=== PATIENT | male | born 1945 | race Caucasian/White ===

== ENCOUNTER 2019-01-29 13:49 | Emergency (ER) | payer OTHER ==
[2019-01-29 14:00] VITALS: BP 129/70
--- NOTE | 2019-01-29 14:25 | UC ---
Lower Extremity/Ankle HPI - HPI Summary HPI Summary: fell today when his shoe got stuck on a sticky area on the floor--pain in right hip and left knee - History of Current Complaint Chief Complaint: UCLowerExtremity Stated Complaint: KNEE/SIDE Time Seen by Provider: 01/29/19 14:15 Hx Obtained From: Patient Onset/Duration: Sudden Onset, Lasting Hours - 3 Pain Intensity: 8 Pain Scale Used: 0-10 Numeric Aggravating Factor(s): Standing Able to Bear Weight: Yes - Allergies/Home Medications Allergies/Adverse Reactions: Allergies Allergy/AdvReac Type Severity Reaction Status Date / Time acetaminophen [From Percocet] Allergy facial Verified 01/29/19 14:00 swelling lisinopril Allergy Swelling Verified 01/29/19 14:01 oxycodone [From Percocet] Allergy facial Verified 01/29/19 14:00 swelling Home Medications: Home Medications Pravastatin Sodium 1 tab PO DAILY 01/29/19 [History Confirmed 01/29/19] Valsartan/Hydrochlorothiazide 1 tab PO DAILY 01/29/19 [History Confirmed ] PMH/Surg Hx/FS Hx/Imm Hx Previously Healthy: No Endocrine History: Dyslipidemia Cardiovascular History: Hypertension Cancer History: Other - ALL - Surgical History Surgical History: Yes Surgery Procedure, Year, and Place: EYE SURGERY 23 YRS AGO RETINA DETACHMENT ( ORBIT XRAYS CLEARED ON PREV MRI -04/07/13), LIPOMA REMOVED 30+ YRS FROM RT SIDE , CATARACT BILAT AND 05/2004 - Family History Known Family History: Positive: None - Social History Occupation: Retired Lives: With Family Alcohol Use: None Substance Use Type: None Smoking Status (MU): Never Smoked Tobacco - Immunization History Most Recent Influenza Vaccination: not sure Most Recent Tetanus Shot: within past 2 yrs Review of Systems All Other Systems Reviewed And Are Negative: Yes Constitutional: Positive: Negative Skin: Positive: Negative Eyes: Positive: Negative ENT: Positive: Negative Respiratory: Positive: Negative Cardiovascular: Positive: Negative Gastrointestinal: Positive: Negative Genitourinary: Positive: Negative Motor: Positive: Negative Neurovascular: Positive: Negative Musculoskeletal: Positive: Arthralgia - right hip and left knee Neurological: Positive: Negative Psychological: Positive: Negative Is Patient Immunocompromised?: No Physical Exam Triage Information Reviewed: Yes Appearance: Well-Appearing, No Pain Distress, Well-Nourished Vital Signs: Initial Vital Signs Temp 98.2 F 01/29/19 13:56 Pulse 73 01/29/19 13:56 Resp 16 01/29/19 13:56 BP 129/70 01/29/19 13:56 Pulse Ox 100 01/29/19 13:56 Vital Signs Reviewed: Yes Eye Exam: Normal Eyes: Positive: Conjunctiva Clear ENT Exam: Normal ENT: Positive: Normal ENT inspection, Hearing grossly normal. Negative: Nasal congestion, Trismus, Muffled voice, Hoarse voice Dental Exam: Normal Neck exam: Normal Neck: Positive: Supple, Nontender, No Lymphadenopathy Respiratory Exam: Normal Respiratory: Positive: Chest non-tender, No respiratory distress, No accessory muscle use Cardiovascular Exam: Normal Cardiovascular: Positive: RRR, Pulses Normal, Brisk Capillary Refill Musculoskeletal Exam: Normal Musculoskeletal: Positive: Strength Intact, ROM Intact, No Edema Neurological Exam: Normal Neurological: Positive: Alert, Muscle Tone Normal Psychological Exam: Normal Skin Exam: Normal Diagnostics - Radiology No standard instances Radiology Interpretation Completed By: Radiologist - no fracture Lower Extremity Course/Dx - Course Course Of Treatment: rest tylenolo/ibuprofen ice follow with pcp prn - Differential Dx/Diagnosis Provider Diagnosis: Contusion of right hip region, Left knee injury Discharge - Sign-Out/Discharge Documenting (check all that apply): Patient Departure All imaging exams completed and their final reports reviewed: Yes - Discharge Plan Condition: Stable Disposition: HOME Patient Education Materials: Fall Prevention for Older Adults (ED), Contusion in Adults (ED) Referrals: Gilmer Maurer MD [Primary Care Provider] - If Needed - Billing Disposition and Condition Condition: STABLE Disposition: Home
== END 2019-01-29 15:13 | disposition home or self-care (01) ==
LOC: UCEAST 13:49
DX: S70.01XA Contusion of right hip, initial encounter (principal); S89.92XA Unspecified injury of left lower leg, initial encounter; W18.30XA Fall on same level, unspecified, initial encounter; Y92.9 Unspecified place or not applicable; E78.5 Hyperlipidemia, unspecified; I10 Essential (primary) hypertension; Z88.5 Allergy status to narcotic agent
CPT/HCPCS: 99211; G0463

== ENCOUNTER 2021-01-22 11:32 | Inpatient (IN) ==
[2021-01-22 14:59] LABS: Urine Appearance Turbid; Urine Bilirubin Negative (Negative); Urine Blood 2+ (Negative); Urine Color Yellow; Urine Glucose Negative (Negative); Urine Ketones Trace (Negative); Urine Nitrite Negative (Negative); Urine Protein 1+(30 mg/dL) (Negative); Urine Specific Gravity 1.016 (1.002-1.030); Urine Urobilinogen Negative (Negative)
[2021-01-22 15:13] LABS: Urine Bacteria Absent (Absent); Urine Red Blood Cell 2+(6-10/hpf) (Absent); Urine Squamous Epithelial Cell Present (Absent); Urine White Blood Cell 2+(11-20/hpf) (Absent)
[2021-01-22 15:19] LABS: Hematocrit 37 % (42-52); Hemoglobin 12.5 g/dL (14.0-18.0); Mean Corpuscular HGB Conc 34 g/dL (31-36); Mean Corpuscular Hemoglobin 31 pg (27-31); Mean Corpuscular Volume 92 fL (80-94); Mean Platelet Volume 7.3 fL (7.4-10.4); Platelet Count 224 10^3/uL (150-450); Red Blood Count 3.97 10^6 /uL (4.18-5.48); Red Cell Distribution Width 15 % (10-15); White Blood Count 18.1 10^3/uL (3.5-10.8)
[2021-01-22 15:35] LABS: Albumin 3.9 g/dL (3.2-5.2); Albumin/Globulin Ratio 1.8 (1-3); Calcium 8.7 mg/dL (8.6-10.3); EGFR African American 78.7 (>60); EGFR Non-African American 65.1 (>60); Globulin 2.2 g/dL (2-4); Potassium 3.3 mmol/L (3.5-5.0); Total Bilirubin 1.4 mg/dL (0.2-1.0); Total Protein 6.1 g/dL (6.4-8.9)
[2021-01-22] MEDS ORDERED: KCL 20 MEQ/100 ML IVPREMIX 20 MEQ/100 ML BAG IV ONE (15:51)
[2021-01-22 15:53] LABS: ABS Lymphocytes 0.6 10^3/ul (1.0-4.8); ABS Monocytes 1.6 10^3/ul (0-0.8); Lymphocyte % 3.2 %; Nucleated Red Blood Cells % 0.1
[2021-01-22] MEDS ORDERED: Potassium Chlor 20 meq TAB.ER PO ONE (16:20)
[2021-01-22] MEDS ORDERED: cefTRIAXone 1 gm/50 mL NS BAG 1 GM/50 ML BAG IV ONE (16:22)
[2021-01-22 16:38] LABS: Magnesium 1.6 mg/dL (1.9-2.7)
[2021-01-22] MEDS ORDERED: Magnesium Sulfate IV 1GM/100ML 1 GM/100 ML BAG IV ONE (16:55)
[2021-01-22] MEDS ORDERED: Diazepam (ANTICONVULSANT) 10 MG RECTAL.GEL PR PRN (19:47)
[2021-01-22] MEDS ORDERED: Imatinib 400 mg TAB (NF) PO SCH (21:24)
[2021-01-22] MEDS ORDERED: Dextran 70/Hypromellose Tears Eye Drops 15 ml BTL (for Artificials Tears) BOTH EYES PRN (22:06)
[2021-01-22 22:07] LABS: Direct Bilirubin 0.3 mg/dL (0.03-0.18); Indirect Bilirubin 1.1 mg/dL (0.3-1.0)
[2021-01-22] MEDS: Enoxaparin 40 MG/0.4 ML SYR SUBCUT SCH (23:17)
[2021-01-23 06:01] LABS: Hematocrit 37 % (42-52); Hemoglobin 12.4 g/dL (14.0-18.0); Mean Corpuscular HGB Conc 34 g/dL (31-36); Mean Corpuscular Hemoglobin 32 pg (27-31); Mean Corpuscular Volume 93 fL (80-94); Mean Platelet Volume 7.4 fL (7.4-10.4); Platelet Count 202 10^3/uL (150-450); Red Blood Count 3.93 10^6 /uL (4.18-5.48); Red Cell Distribution Width 15 % (10-15)
[2021-01-23 06:47] LABS: Calcium 8.2 mg/dL (8.6-10.3); EGFR African American 87.9 (>60); EGFR Non-African American 72.6 (>60); Potassium 3.9 mmol/L (3.5-5.0)
[2021-01-23] MEDS ORDERED: cefTRIAXone 1 gm/50 mL NS BAG 1 GM/50 ML BAG IVPB SCH (08:00)
[2021-01-23 08:07] LABS: Magnesium 1.8 mg/dL (1.9-2.7)
[2021-01-23] MEDS ORDERED: Magnesium Sulfate 2 gm BAG 2 GM/50 ML BAG IVPB ONE (08:46)
[2021-01-23] MEDS ORDERED: Imatinib 400 mg TAB (NF) PO SCH (09:00)
[2021-01-23] MEDS: PTO: Imatinib 400 mg TAB (NF) PO SCH (10:25)
[2021-01-23] MEDS: Lidocaine 2% JELLY 6 ML TOPICAL SCH ×2 (15:15→19:37)
[2021-01-23] MEDS ORDERED: cefTRIAXone 1 gm/50 mL NS BAG 1 GM/50 ML BAG IVPB ONE (16:14)
[2021-01-23 17:17] LABS: PSA Screening Total 35.52 ng/mL (0-4.000)
[2021-01-23] MEDS: Enoxaparin 40 MG/0.4 ML SYR SUBCUT SCH (19:34)
[2021-01-24 05:06] LABS: ABS Lymphocytes 0.8 10^3/ul (1.0-4.8); ABS Monocytes 0.8 10^3/ul (0-0.8); ABS Neutrophils 6.1 10^3/ul (1.5-7.7); Eosinophil % 0.4 %; Hematocrit 35 % (42-52); Hemoglobin 11.7 g/dL (14.0-18.0); Lymphocyte % 10.7 %; Mean Corpuscular HGB Conc 34 g/dL (31-36); Mean Corpuscular Hemoglobin 31 pg (27-31); Mean Corpuscular Volume 93 fL (80-94); Mean Platelet Volume 7.7 fL (7.4-10.4); Platelet Count 215 10^3/uL (150-450); Red Blood Count 3.76 10^6 /uL (4.18-5.48); Red Cell Distribution Width 15 % (10-15); White Blood Count 7.8 10^3/uL (3.5-10.8)
[2021-01-24 05:25] LABS: Calcium 7.9 mg/dL (8.6-10.3); EGFR African American 91.1 (>60); EGFR Non-African American 75.2 (>60); Potassium 3.3 mmol/L (3.5-5.0)
[2021-01-24] MEDS ORDERED: Potassium Chlor 20 meq TAB.ER PO ONE (06:51)
[2021-01-24 07:59] LABS: Magnesium 1.8 mg/dL (1.9-2.7)
[2021-01-24] MEDS: PTO: Imatinib 400 mg TAB (NF) PO SCH (08:30)
[2021-01-24] MEDS: Lidocaine 2% JELLY 6 ML TOPICAL SCH ×2 (08:33→14:54)
[2021-01-24] MEDS ORDERED: cefTRIAXone 2 GM ADDV.VIAL 2 GM in NS 0.9% 100 ml BAG 100 ML IV SCH (12:00)
[2021-01-24] MEDS: Polyethylene Glycol 3350 17 GM PACKET PO SCH (12:12)
[2021-01-24] MEDS ORDERED: Senna TAB 8.6 mg TAB PO SCH (21:00)
[2021-01-24] MEDS: Enoxaparin 40 MG/0.4 ML SYR SUBCUT SCH (21:00)
[2021-01-25] MEDS: Lidocaine 2% JELLY 6 ML TOPICAL SCH ×3 (05:03→13:47)
[2021-01-25] MEDS: Polyethylene Glycol 3350 17 GM PACKET PO SCH (08:04)
[2021-01-25] MEDS: PTO: Imatinib 400 mg TAB (NF) PO SCH (08:07)
[2021-01-25] MEDS ORDERED: Calcium Polycarbophil 625mg TB PO SCH (09:00)
[2021-01-25 11:22] VITALS: BP 137/72
[2021-01-25 12:12] LABS: ABS Eosinophils 0.1 10^3/ul (0-0.6); ABS Lymphocytes 0.8 10^3/ul (1.0-4.8); ABS Monocytes 0.8 10^3/ul (0-0.8); ABS Neutrophils 3.2 10^3/ul (1.5-7.7); Eosinophil % 1.5 %; Hematocrit 37 % (42-52); Hemoglobin 12.7 g/dL (14.0-18.0); Lymphocyte % 16.6 %; Mean Corpuscular HGB Conc 35 g/dL (31-36); Mean Corpuscular Hemoglobin 32 pg (27-31); Mean Corpuscular Volume 92 fL (80-94); Mean Platelet Volume 7.3 fL (7.4-10.4); Platelet Count 275 10^3/uL (150-450); Red Blood Count 4.02 10^6 /uL (4.18-5.48); Red Cell Distribution Width 15 % (10-15)
[2021-01-25 12:32] LABS: Calcium 8.4 mg/dL (8.6-10.3); EGFR African American 103.2 (>60); EGFR Non-African American 85.3 (>60); Potassium 3.4 mmol/L (3.5-5.0)
== END 2021-01-25 18:00 | disposition home or self-care (01) | DRG 690 ==
LOC: ED 11:32 → MED 20:27
PROVIDERS: ADMIT Internal Medicine; ATTEND Internal Medicine